=== PATIENT | female | born 2000 | race Two or more races ===

== ENCOUNTER 2025-01-22 05:20 | Emergency (ER) | payer OTHER ==
[~2025-01-22] VITALS: Ht 152.4 cm; Wt 63.6 kg
--- NOTE | 2025-01-22 05:27 | ECG ---
[facility] Test Date: 2025-01-22 Test Time: 05:26:39 Pat Name: LARA CHAN Department: ED Room: Gender: F [employer]: YUSUF : 2000 Requested By: EMERGENCY EMERGENCY Order Number: [id number] Reading MD: Daryl Hauser Measurements Intervals [place] Rate: 73 P: 60 CA: 141 QRS: 64 QRSD: 93 T: 66 QT: 379 QTc: 418 Interpretive Statements Sinus rhythm Electronically Signed On 01-23-2025 22:37:35 PDT by Daryl Hauser Please click the below link to view image of tracing.
[2025-01-22 05:32] VITALS: BP 116/71; PULSE 80; RESP 14; TEMP 98.2; O2SAT 100
== END 2025-01-22 08:01 | disposition left against medical advice (07) ==
LOC: ER 05:20
DX: R07.89 Other chest pain (principal); M54.50 Low back pain, unspecified; R10.9 Unspecified abdominal pain; Z53.21 Procedure and treatment not carried out due to patient leaving prior to being seen by health care provider
CPT/HCPCS: 93005